=== PATIENT | female | born 1985 | race Caucasian/White ===

== ENCOUNTER 2017-06-19 13:10 | Outpatient (CLI) | payer BC | END 2017-06-19 13:11 | disposition home or self-care (01) | LOC: BICRAD 13:10 | PROVIDERS: ATTEND Podiatrist | DX: M79.672 Pain in left foot (principal) ==

== ENCOUNTER 2021-06-12 17:30 | Inpatient (IN) | payer BC ==
[2021-06-12] MEDS ORDERED: Ondansetron PF 4 MG/2 ML Vial ONE ×2 (17:56→19:54)
[2021-06-12] MEDS ORDERED: Morphine 4 MG/ML VIAL ONE ×2 (17:56→19:54)
[2021-06-12 18:48] LABS: #Basophils 0.1 thou/uL (0.0-0.2); #Lymphocytes 1.9 thou/uL (1.20-3.40); #Monocytes 0.8 thou/uL (0.11-0.59); #Neutrophils 10.9 thou/uL (1.40-6.50); %Basophils 0.4 % (0.0-1.0); %Eosinophils 0.3 % (0.0-10.0); %Lymphocytes 14.2 % (21.0-51.0); %Monocytes 5.5 % (0.0-10.0); %Neutrophils 79.7 % (42.0-75.0); Mean Corpuscular HGB CONC 34.9 g/dL (32.0-36.0); Mean Corpuscular Hemoglobin 31.7 pg (27.0-31.0); Mean Corpuscular Volume 90.9 fL (78.0-98.0); Mean Platelet Volume 7.5 fL (7.4-10.4); Platelet Count 385 thou/uL (130-400); RBC Distribution Width 11.7 % (11.5-14.5); Red Blood Cell (RBC) Count 4.72 mill/uL (4.20-5.40); White Blood Cell (WBC) Count 13.7 thou/uL (4.8-10.8)
[2021-06-12] MEDS ORDERED: Cefepime 2 GM VIAL ONE (19:54)
[2021-06-12 20:32] LABS: ALT (SGPT) 19 U/L (8-55); AST (SGOT) 21 U/L (5-34); Albumin 4.1 g/dL (3.5-5.0); Alkaline Phosphatase 71 U/L (40-110); Anion Gap 15 mmol/L (10-20); BUN (Urea Nitrogen) 9 mg/dL (7.0-18.7); Bilirubin, Total 1.1 mg/dL (0.2-1.2); Calc. Creatinine Clearance 0 mL/min (70-130); Calcium 8.7 mg/dL (7.8-10.44); Carbon Dioxide 21 mmol/L (22-29); Chloride 106 mmol/L (98-107); Globulin 2.7 g/dL (2.4-3.5); Glucose 94 mg/dL (70-105); Lipase 16 U/L (8-78); Potassium 3.6 mmol/L (3.5-5.1); Protein, Total 6.8 g/dL (6.0-8.3); Sodium 138 mmol/L (136-145)
[2021-06-12] MEDS ORDERED: hydrALAZINE 20 MG/ML VIAL SLOW IVP PRN (21:17)
[2021-06-12] MEDS ORDERED: Mag-Al 1200 mg/1200 mg/30 ML UDCUP PO PRN (21:17)
[2021-06-12] MEDS ORDERED: Promethazine HCl 25 MG/ML VIAL IM PRN (21:17)
[2021-06-12] MEDS ORDERED: Dextrose 5% in Water 1,000 ML IV PRN (21:17)
[2021-06-12] MEDS ORDERED: Calcium Carbonate 500 MG ChewTAB PO PRN (21:17)
[2021-06-12] MEDS ORDERED: Ondansetron PF 4 MG/2 ML Vial IVP PRN (21:17)
[2021-06-12] MEDS ORDERED: HYDROcodone/Acetaminophen 10/325 mg Tablet PO PRN (21:17)
[2021-06-12] MEDS ORDERED: Dextrose 50% Abboject 50 ML SYRINGE SLOW IVP PRN (21:17)
[2021-06-12] MEDS ORDERED: Famotidine/PF 20 mg/2ml Vial SLOW IVP SCH (22:00)
[2021-06-12] MEDS ORDERED: Famotidine 20 MG TAB PO SCH (22:00)
[2021-06-12] MEDS: D5 1/2 NS w/20 mEq KCL 1,000 ML IV SCH (22:42)
[2021-06-12] MEDS: Ketorolac Tromethamine 30 MG/ML VIAL IVP PRN (22:43)
[2021-06-13] MEDS: Morphine 4 MG/ML VIAL SLOW IVP PRN ×2 (01:05→07:52)
[2021-06-13 02:03] VITALS: BMI 39.5
[2021-06-13] MEDS: Ketorolac Tromethamine 30 MG/ML VIAL IVP PRN ×2 (04:31→15:23)
[2021-06-13] MEDS: D5 1/2 NS w/20 mEq KCL 1,000 ML IV SCH (06:43)
[2021-06-13 07:45] LABS: SARS-CoV-2 NAA Rapid Test Not Detected (NotDetected)
[2021-06-13] MEDS ORDERED: cefOXitin 2 GM VIAL ONE (08:35)
[2021-06-13] MEDS ORDERED: Sodium Chloride 0.9% 100 ML ONE (08:36)
[2021-06-13] MEDS ORDERED: Xylocaine 1% w/ Epi 1:100K 10 ML VIAL ONE (08:39)
[2021-06-13] MEDS ORDERED: Bupivacaine 0.25% HCL 30 ML VIAL ONE (08:39)
[2021-06-13] MEDS ORDERED: Fentanyl 250 MCG/5 ML VIAL ONE (08:49)
[2021-06-13] MEDS ORDERED: Ondansetron PF 4 MG/2 ML Vial ONE ×2 (08:59→09:13)
[2021-06-13] MEDS ORDERED: Famotidine 20 MG TAB PO SCH (09:00)
[2021-06-13] MEDS ORDERED: Piperacillin/Tazobactam 3.375 GM VIAL ONE (09:00)
[2021-06-13] MEDS ORDERED: Famotidine/PF 20 mg/2ml Vial SLOW IVP SCH (09:00)
[2021-06-13] MEDS ORDERED: Dexamethasone 20 MG/5 ML VIAL ONE (09:13)
[2021-06-13] MEDS ORDERED: Ketorolac Tromethamine 30 MG/ML VIAL ONE (09:13)
[2021-06-13] MEDS ORDERED: PROPOFOL 200 MG/20 ML VIAL ONE (09:13)
[2021-06-13] MEDS ORDERED: Succinylcholine 200 MG/10 ml SYRINGE FS ONE (09:13)
[2021-06-13] MEDS ORDERED: Lidocaine 1% PF 5 ML VIAL ONE (09:13)
[2021-06-13] MEDS ORDERED: Glycopyrrolate 0.2 MG/ML 5 ML SYRINGE ONE (09:13)
[2021-06-13] MEDS ORDERED: PHENYLEPHRINE-NS 100 MCG/ML 10 ML SYRINGE ONE (09:13)
[2021-06-13] MEDS ORDERED: Rocuronium Bromide 10 MG/ML (10ML VIAL) ONE (09:13)
[2021-06-13] MEDS ORDERED: Promethazine HCl 12.5 MG in Sodium Chloride 0.9% 50 ML IVPB PRN (12:46)
[2021-06-13 17:20] VITALS: BP 100/66; TEMP 97.8
== END 2021-06-13 17:22 | disposition home or self-care (01) | DRG 419 ==
LOC: ERS 17:30 → SURG B 18:58
PROVIDERS: ADMIT Surgery; ATTEND Surgery
PROC: 3E03329 Introduction of Other Anti-infective into Peripheral Vein, Percutaneous Approach (ICD-10-PCS; 2021-06-12)
PROC: 0FT44ZZ Resection of Gallbladder, Percutaneous Endoscopic Approach (ICD-10-PCS; principal; 2021-06-13)
DX: K81.0 Acute cholecystitis (principal); Z20.822 Contact with and (suspected) exposure to COVID-19; Z88.1 Allergy status to other antibiotic agents; Z90.49 Acquired absence of other specified parts of digestive tract
CPT/HCPCS: 36415; 76705; 80053; 83690; 85025; 88304; 96365; 96375; 96376; C1713; J0692; J0694; J1100; J1885; J2270; J2405; J2543; J2550; J2704; J3010; J3480; J3490; S0020; S0028; U0002; U0003; U0005